=== PATIENT | male | born 1995 | race Caucasian/White ===

== ENCOUNTER 2022-12-06 12:52 | Emergency (ER) | payer BC ==
[~2022-12-06] VITALS: Ht 185.4 cm; Wt 120.2 kg
[2022-12-06 13:22] LABS: BASO # 0.1 10*3/uL (0.0-0.1); BASO % 1.2 % (0.0-1.0); EOS # 0.4 10*3/uL (0.0-0.4); EOS % 4.4 % (1.0-4.0); HEMATOCRIT 50.1 % (42.0-52.0); LYMPH # 2.5 10*3/uL (1.3-4.4); MEAN CELL VOLUME 87.6 fl (80.0-94.0); MEAN CORPUSCULAR HGB 30.9 pg (27.0-31.0); MEAN CORPUSCULAR HGB CONC 35.3 g/dl (33.0-37.0); MEAN PLATELET VOLUME 8.9 fl (9.6-12.3); NEUT # 4.5 10*3/uL (2.3-7.9); NEUT % 52.8 % (47.0-73.0); PLATELET COUNT AUTOMATED 276 10*3/uL (130-400); RED BLOOD COUNT 5.72 10*6/uL (4.50-5.90); RED CELL DISTRI WIDTH 13.2 % (0-14.5); WHITE BLOOD COUNT 8.6 10*3/uL (4.8-10.8)
[2022-12-06] MEDS ORDERED: HYDROXYZINE HCL25 MG PO (13:34)
[2022-12-06] MEDS ORDERED: LEXAPRO20 MG PO (13:35)
[2022-12-06 13:40] LABS: ACT PARTIAL THROMBO TIME 28.2 SECONDS (20.0-32.1)
[2022-12-06 13:44] LABS: ALKALINE PHOSPHATASE 98 U/L (46-116); BUN 9 mg/dl (9-23); CHLORIDE 104 mmol/L (98-107); LIPASE 33 U/L (12-53); POTASSIUM 3.3 mmol/L (3.4-5.1); SGPT/ALT 27 U/L (10-49)
== END 2022-12-06 15:53 | disposition home or self-care (01) ==
LOC: ED 12:52
PROVIDERS: Emergency Medicine
DX: F41.9 Anxiety disorder, unspecified (principal); Z79.899 Other long term (current) drug therapy